=== PATIENT | male | born 1955 | race Caucasian/White ===

== ENCOUNTER 2016-09-22 23:44 | Emergency (ER) | payer MEDICARE | END 2016-09-22 23:46 | disposition left against medical advice (07) | LOC: ER1 23:44 | DX: Z53.21 Procedure and treatment not carried out due to patient leaving prior to being seen by health care provider (principal) | CPT/HCPCS: 93005 ==

== ENCOUNTER → 2020-08-04 | Outpatient (CLI) | payer MEDICARE, OTHER ==
[~2020-08-04] MED LIST: MIRALAX17 GM PO
== END ==
LOC: EXRD 07-25 13:30 → KOH-I 14:30
DX: Z12.2 Encounter for screening for malignant neoplasm of respiratory organs (principal); R22.1 Localized swelling, mass and lump, neck; N17.9 Acute kidney failure, unspecified; F17.210 Nicotine dependence, cigarettes, uncomplicated
CPT/HCPCS: 71271; 76536; 76775

== ENCOUNTER → 2020-12-20 | Outpatient (CLI) | payer MEDICARE, OTHER ==
[2020-12-20 13:49] LABS: BUN/CREATININE RATIO 15 (0-10)
[2020-12-21 11:14] LABS: CREATININE, URINE 226.9 mg/dL (Not Estab.)
== END ==
LOC: LAB 11:15
PROVIDERS: Internal Medicine Nephrology
DX: N18.9 Chronic kidney disease, unspecified (principal)
CPT/HCPCS: 36415; 80053; 81001; 82043; 82570; 84156

== ENCOUNTER → 2021-01-05 | Outpatient (CLI) | payer MEDICARE, OTHER | LOC: EXRD 08:00 | DX: R09.89 Other specified symptoms and signs involving the circulatory and respiratory systems (principal); I74.10 Embolism and thrombosis of unspecified parts of aorta; I74.5 Embolism and thrombosis of iliac artery | CPT/HCPCS: 93979 ==

== ENCOUNTER 2021-06-11 18:43 | Inpatient (IN) | payer MEDICARE, OTHER ==
[~2021-06-11] VITALS: Ht 172.7 cm; Wt 70.3 kg
[2021-06-11 19:52] LABS: HEMOGLOBIN 12.3 gm/dl (14.0-17.5); RED BLOOD COUNT 4.23 M/UL (4.20-5.50); WHITE BLOOD COUNT 10.1 K/UL (4.5-11.0)
[2021-06-12] MEDS ORDERED: NAMENDA5 MG PO (11:12)
[2021-06-12] MEDS ORDERED: QUETIAPINE FUM100 MG PO (11:13)
[2021-06-12] MEDS ORDERED: QUETIAPINE FUMA50 MG PO (11:14)
[2021-06-12] MEDS ORDERED: TRELEGY ELLIPT1 EAC1 INH (11:49)
[2021-06-12] MEDS ORDERED: PROAIR HFA8.5 GM INH (11:50)
[2021-06-12] MEDS ORDERED: METOPROLOL TART25 MG PO (11:50)
[2021-06-12] MEDS ORDERED: LOSARTAN POTASS25 MG PO (11:50)
[2021-06-12] MEDS ORDERED: ATORVASTATIN CA80 MG PO (11:50)
[2021-06-12] MEDS ORDERED: STOOL SOFTENER240 MG PO (11:51)
[2021-06-12] MEDS ORDERED: ELIQUIS5 MG PO (11:51)
[2021-06-12] MEDS ORDERED: VISTARIL50 MG PO (11:51)
[2021-06-12] MEDS ORDERED: NALTREXONE HCL50 MG PO (11:52)
[2021-06-12] MEDS ORDERED: DITROPAN 5 MG TA5 MG PO (11:52)
[2021-06-13 01:18] LABS: BUN/CREATININE RATIO 30 (0-10)
[2021-06-13 01:24] LABS: HEMOGLOBIN 11.1 gm/dl (14.0-17.5); RED BLOOD COUNT 3.75 M/UL (4.20-5.50); WHITE BLOOD COUNT 8.8 K/UL (4.5-11.0)
[2021-06-14 07:45] LABS: BUN/CREATININE RATIO 29 (0-10)
--- NOTE | 2021-06-14 16:32 | NUR ---
LAST SET OF VITALS TAKEN BY MACHINE TECHNICIAN REPORTED BP 213/75. NOTIFIED DR. PARRISH STAT. SHE ORDERED 20MG HYDRALAZINE IVP STAT AND SAID SHE WILL ENTER OTHER ORDERS TO CONTINUE TO DECREASE HIS BLOOD PRESSURE. WILL CONTINUE TO MONITOR PATIENT AND WAIT ON FURTHER ORDERS.
--- NOTE | 2021-06-14 18:11 | NUR ---
LILIESRAFAL SCANNED LATE. MAR WOULDNT SCAN AND THE MEDICATION WAS NEEDED STAT. DR. GUO AWARE AND ORDERED TO GO AHEAD AND GIVE DOSE.
[2021-06-15 07:48] LABS: BUN/CREATININE RATIO 28 (0-10)
[2021-06-16 04:22] LABS: BUN/CREATININE RATIO 27 (0-10)
[2021-06-17 08:00] LABS: BUN/CREATININE RATIO 27 (0-10)
[2021-06-18 04:50] LABS: HEMOGLOBIN 11.7 gm/dl (14.0-17.5); RED BLOOD COUNT 4.01 M/UL (4.20-5.50); WHITE BLOOD COUNT 9.2 K/UL (4.5-11.0)
[2021-06-18 05:01] LABS: BUN/CREATININE RATIO 32 (0-10)
--- NOTE | 2021-06-18 05:07 | NUR ---
CALLED PHARMACY TO DOUBLE CHECK ORDERS FOR LABETALOL REGARDING PERIMITERS. DA SAID OKAY TO GIVE
--- NOTE | 2021-06-18 05:57 | NUR ---
LAB CALLED WITH CRITICAL BGL OF 49 PROVIDER MADE AWARE SAID TO GIVE PATIENT JUICE AND RECHECK IN 15 MIN. RECHECK WAS BGL OF 213
--- NOTE | 2021-06-19 05:04 | NUR ---
MORE ACCURATE BP WHEN PATIENT IS LYING ON BACK
--- NOTE | 2021-06-19 08:58 | NUR ---
PT REFUSED PO MEDS AGGRESSIVE WITH STAFF
--- NOTE | 2021-06-20 03:46 | NUR ---
patient was placed on waffle mattress
[2021-06-20 05:55] LABS: HEMOGLOBIN 12.2 gm/dl (14.0-17.5); RED BLOOD COUNT 4.2 M/UL (4.20-5.50); WHITE BLOOD COUNT 10.3 K/UL (4.5-11.0)
[2021-06-20 06:13] LABS: BUN/CREATININE RATIO 32 (0-10)
--- NOTE | 2021-06-20 06:21 | NUR ---
patients son called to check on patient, he would like to speak with the provider. I informed him that I would pass it on in report to dayshift
[2021-06-20 08:15] LABS: RPR Non Reactive (Non Reactive)
--- NOTE | 2021-06-20 11:00 | NUR ---
PT CLIMBED OVER RAILS STANDING AT BEDSIDE WAS REDIRECTED TO SIT WITH SOME DIFFICULTY SQUEEZING STAFF WRIST AND ARMS. DR MEAD AWARE AND ONE TO ONE ORDER IN PLACE. HE WAS ABLE TO SIT AT THE BEDSIDE AND EAT A SMALL AMOUNT OF HIS LUNCH.
--- NOTE | 2021-06-20 17:51 | NUR ---
ONE TO ONE SITTER AT THE BEDSIDE, PT SAT AT BEDSIDE AND ATE A PORTION OF HIS DINNER. NO DISTRESS NOTED. HE CONTINUES TO NEED REDIRECTION AND NON COMPLIANT WITH MEDICATIONS .
--- NOTE | 2021-06-20 23:36 | NUR ---
PATIENT GOT OUT OF BED AND URINATED ON THE FLOOR WE ATTEMPTED TO PUT HIM BACK IN BED. PATIENT ASSISTED BACK INTOBED AND BED ALARM SET.
--- NOTE | 2021-06-21 03:52 | NUR ---
PATIENT WAS AWAKE TRYING TO GET OUT OF BED, I PLACED A STRIP ALARM ON THE CHAIR AND ASSISTED THE PATIENT TO THE CHAIR. HE STAYED SITTING IN THE CHAIR FOR APPROX 45 MINUTES. THEN GAVE A BED BATH TO THE PATIENT, DRESSED HIM WITH A BRIEF, SLIPPER SOCKS, PJ PANTS AND A GOWN. PATIENT ATE TWO HAM SANDWICHES, DRANK A CAN OF 7UP AND WHOLE GLASS ICE WATER. PATIENT IS NOW SLEEPING
[2021-06-21 06:54] LABS: HEMOGLOBIN 10.9 gm/dl (14.0-17.5)
[2021-06-21 06:56] LABS: RED BLOOD COUNT 3.73 M/UL (4.20-5.50); WHITE BLOOD COUNT 6.8 K/UL (4.5-11.0)
[2021-06-21 07:26] LABS: BUN/CREATININE RATIO 30 (0-10)
[2021-06-22 04:52] LABS: HEMOGLOBIN 11.2 gm/dl (14.0-17.5); RED BLOOD COUNT 3.78 M/UL (4.20-5.50); WHITE BLOOD COUNT 7.3 K/UL (4.5-11.0)
[2021-06-22 05:16] LABS: BUN/CREATININE RATIO 24 (0-10)
[2021-06-23 07:19] LABS: HEMOGLOBIN 10.4 gm/dl (14.0-17.5); RED BLOOD COUNT 3.67 M/UL (4.20-5.50); WHITE BLOOD COUNT 5.7 K/UL (4.5-11.0)
[2021-06-23 07:29] LABS: BUN/CREATININE RATIO 23 (0-10)
--- NOTE | 2021-06-23 12:40 | NUR ---
WALKED INTO ROOM WITH BED ALARM THAT HAD JUST STARTED SOUNDING. PT WAS SITTING IN FLOOR BESIDE HIS BED.
[2021-06-24 06:08] LABS: HEMOGLOBIN 10.7 gm/dl (14.0-17.5); RED BLOOD COUNT 3.63 M/UL (4.20-5.50); WHITE BLOOD COUNT 6.7 K/UL (4.5-11.0)
[2021-06-24 06:39] LABS: BUN/CREATININE RATIO 19 (0-10)
[2021-06-25 10:14] LABS: HEMOGLOBIN 10.6 gm/dl (14.0-17.5); RED BLOOD COUNT 3.58 M/UL (4.20-5.50)
[2021-06-25 10:37] LABS: BUN/CREATININE RATIO 22 (0-10)
--- NOTE | 2021-06-25 17:50 | NUR ---
PT ONLY URINATED ONCE EARLY THIS AM. PT BLADDER SCANNED WHICH SHOWED 361 ML. WILL PASS ALONG TO SILO ERECTOR NURSE TO MONITOR THIS.
--- NOTE | 2021-06-25 18:27 | NUR ---
PT URINATED 250CC IN URINAL WITH ASSISTANCE AT THIS TIME.
[2021-06-26 05:58] LABS: HEMOGLOBIN 9.6 gm/dl (14.0-17.5); RED BLOOD COUNT 3.23 M/UL (4.20-5.50); WHITE BLOOD COUNT 6.2 K/UL (4.5-11.0)
[2021-06-26 06:23] LABS: BUN/CREATININE RATIO 21 (0-10)
[2021-06-26 19:23] LABS: BUN/CREATININE RATIO 18 (0-10)
[2021-06-27 03:43] LABS: HEMOGLOBIN 8.8 gm/dl (14.0-17.5); RED BLOOD COUNT 3.13 M/UL (4.20-5.50); WHITE BLOOD COUNT 5.3 K/UL (4.5-11.0)
[2021-06-27 04:13] LABS: BUN/CREATININE RATIO 20 (0-10)
[2021-06-30] MEDS ORDERED: QUETIAPINE FUMA25 MG PO (09:26)
[2021-06-30] MEDS ORDERED: QUETIAPINE FUM100 MG PO (09:26)
[2021-06-30] MEDS ORDERED: DEPAKOTE 250 M250 MG PO (09:26)
[2021-06-30] MEDS ORDERED: METOPROLOL TART25 MG PO (09:29)
== END 2021-06-30 13:00 | disposition home or self-care (01) | DRG 871 ==
LOC: ER1 18:43 → CDU 21:21 → MED SURG 4 21:21 → 3 EAST 21:21 → M/S 21:21 → 3 EAST 06-13 02:27 → MED SURG 4 06-13 15:43 → M/S 06-21 23:48
PROVIDERS: Family Medicine; Internal Medicine; ADMIT Emergency Medicine
PROC: XW033H5 Introduction of Tocilizumab into Peripheral Vein, Percutaneous Approach, New Technology Group 5 (ICD-10-PCS; principal; 2021-06-12)
PROC: 8E0ZXY6 Isolation (ICD-10-PCS; 2021-06-13)
PROC: 3E0333Z Introduction of Anti-inflammatory into Peripheral Vein, Percutaneous Approach (ICD-10-PCS; 2021-06-13)
DX: A41.89 Other specified sepsis (principal); U07.1 COVID-19; G93.41 Metabolic encephalopathy; J12.82 Pneumonia due to coronavirus disease 2019; J96.21 Acute and chronic respiratory failure with hypoxia; J15.9 Unspecified bacterial pneumonia; E87.2 Acidosis; N17.9 Acute kidney failure, unspecified; M62.82 Rhabdomyolysis; F02.81 Dementia in other diseases classified elsewhere, unspecified severity, with behavioral disturbance; E87.0 Hyperosmolality and hypernatremia; Z23 Encounter for immunization; E86.0 Dehydration; Z66 Do not resuscitate; R65.20 Severe sepsis without septic shock; D50.9 Iron deficiency anemia, unspecified; J43.9 Emphysema, unspecified; F31.9 Bipolar disorder, unspecified; E87.6 Hypokalemia; L89.152 Pressure ulcer of sacral region, stage 2; F17.200 Nicotine dependence, unspecified, uncomplicated; I25.10 Atherosclerotic heart disease of native coronary artery without angina pectoris; I10 Essential (primary) hypertension; G30.9 Alzheimer's disease, unspecified; Z86.73 Personal history of transient ischemic attack (TIA), and cerebral infarction without residual deficits; Z95.5 Presence of coronary angioplasty implant and graft; I25.2 Old myocardial infarction; Z98.890 Other specified postprocedural states; Z82.49 Family history of ischemic heart disease and other diseases of the circulatory system; Z91.14 Patient's other noncompliance with medication regimen
CPT/HCPCS: 36415; 36600; 51701; 70450; 71045; 80048; 80053; 81001; 82550; 82553; 82607; 82803; 82962; 83540; 83550; 83605; 83735; 83874; 83880; 84132; 84484; 85025; 85027; 85610; 85652; 86140; 86592; 87040; 93005; 94640; 94664; 94760; 96365; 96375; 96376; 97161; 97165; 99285; A6212; J0360; J0456; J0696; J1100; J1630; J1650; J2060; J3486; J7030; J7070; J7120; M0249; Q0249; U0002